=== PATIENT | male | born 2000 | race Caucasian/White ===

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

== ENCOUNTER 2023-02-18 10:51 | Emergency (ER) | payer OTHER, SELFPAY ==
[2023-02-18 11:02] VITALS: BP 131/81; PULSE 63; RESP 16; TEMP 37; O2SAT 100
--- NOTE | 2023-02-18 11:24 | ED.EYEPROB ---
HPI - Eye Problem General Chief complaint: Eye Problems Stated complaint: Left Eye Irritation Time Seen by Provider: 02/18/23 11:19 Source: patient and RN notes reviewed Mode of arrival: ambulatory Limitations: no limitations History of Present Illness HPI Narrative: Patient presents today complaining of left eye irritation and burning since last night with redness and green drainage with photophobia that started today. Patient took an allergy medication and used [id number] eyedrops without much relief. Denies any recent illness. Related Data Home Medications Medication Instructions Recorded Confirmed meloxicam 15 mg tablet mg 02/18/23 Allergies Allergy/AdvReac Type Severity Reaction Status Date / Time No Known Allergies Allergy Verified 02/18/23 10:53 Review of Systems Review of Systems: CONSTITUTIONAL: Denies body aches, fever, chills, or sweats. EYES: Denies visual changes. + left eye redness, burning, drainage ENT: Denies rhinorrhea, congestion, sore throat, or otalgia. CARDIOVASCULAR: Denies chest pain, palpitations, or edema. RESPIRATORY: Denies cough or dyspnea. GASTROINTESTINAL: Denies abdominal pain, nausea, vomiting, or diarrhea. GENITOURINARY: Denies dysuria or hematuria. SKIN: Denies rash, itching, or wounds. MUSCULOSKELETAL: Denies back pain, joint pain, or myalgia. NEUROLOGIC: Denies headache, numbness, tingling, or weakness. PSYCH: Denies depression or anxiety. PMFSH Social History Social History (Reviewed 02/18/23 @ 11:25 by Litzy Washington, [facility] [place], ) Gender identity (if verbalized by the patient): Male Comments At time of signature, I have reviewed and agree with nursing past medical, surgical, social and family history unless otherwise noted. Please see nursing chart for further information. There is no relevant family history pertinent to the presenting complaint Exam Narrative: GENERAL: Well-appearing, well-nourished, and in no acute distress. HEAD: Normocephalic, atraumatic. EYES: EOMI. PERRL. Right eye normal. Left eye with moderately injected conjunctiva and moderate amount of yellow drainage on the lower lash line. Lids and lashes normal. ENT: Mucous membranes pink and moist. NECK: Normal AROM. CHEST: No respiratory distress. EXTREMITIES: Normal range of motion. No edema. SKIN: Warm, dry, no rash. Capillary refill normal. Normal skin turgor. NEURO: No focal deficits. Alert and oriented x3. Gait steady. PSYCH: Normal affect. No signs of depression or anxiety. Course Course Level of Care: Express Care Visit Vital Signs Vital signs: Vital Signs Temperature 98.6 F 02/18/23 11:02 Pulse Rate 63 02/18/23 11:02 Respiratory Rate 16 02/18/23 11:02 Blood Pressure 131/81 02/18/23 11:02 Pulse Oximetry 100 02/18/23 11:02 Oxygen Delivery Room Air 02/18/23 11:02 Temperature 98.6 F 02/18/23 11:02 Pulse Rate 63 02/18/23 11:02 Respiratory Rate 16 02/18/23 11:02 Blood Pressure 131/81 02/18/23 11:02 Pulse Oximetry 100 02/18/23 11:02 Oxygen Delivery Room Air 02/18/23 11:02 Reviewed. Pt has been instructed to follow up with his PCP regarding his elevated blood pressure today. MDM - Eye Problem MDM Narrative Medical decision making narrative: Symptoms consistent with bacterial conjunctivitis. Prescription for ciprofloxacin eyedrops sent to pharmacy. Anticipatory guidance given. Differential Diagnosis Differential diagnosis: Likely corneal abrasion, conjunctivitis and other (Seasonal allergies) Critical Care Time Critical Care Time Critical Care Time: No Discharge Plan Discharge Clinical Impression: Acute bacterial conjunctivitis of left eye Patient Disposition: Home, Self-Care Condition: Stable Instructions: Conjunctivitis (ED) Additional Instructions: Please use the eyedrops as directed. Wash hands frequently to prevent spread to the other eye. Follow-up with your PCP or eye doctor in 3 d
== END 2023-02-18 11:33 | disposition home or self-care (01) ==
PROVIDERS: Emergency Provider Nurse Practitioner
DX: H10.32 Unspecified acute conjunctivitis, left eye (principal)
CPT/HCPCS: 99213; G0463